=== PATIENT | female | born 1940 | race Asian ===

== ENCOUNTER 2016-11-23 12:09 | Emergency (ER) | payer OTHER ==
[2016-11-23 12:28] VITALS: TEMP 97.5
--- NOTE | 2016-11-23 13:14 | CPEKG ---
Heart Rate: 70 RR Interval: 857 P-R Interval: 192 QRSD Interval: 86 QT Interval: 464 QTC Interval: 501 P [place]: 47 QRS [place]: 4 T Wave [place]: -18 EKG Severity - ABNORMAL ECG - EKG Impression: SINUS RHYTHM EKG Impression: NONSPECIFIC T ABNORMALITIES, INFERIOR LEADS EKG Impression: BORDERLINE PROLONGED QT INTERVAL Electronically Signed By: Swetha Richards 23-Nov-2016 21:12:02
--- NOTE | 2016-11-23 13:29 | DX ---
PA and Lateral Chest Indication: Dyspnea Comparison: None Findings: Lungs have diffuse mild peribronchial thickening and minimal linear bibasilar atelectasis. No pneumothorax, airspace consolidation, edema or effusion. The heart size is upper normal. Coronary stents overlie the right and left side of the heart. Calcified plaque is present along the aortic arc h. Surgical clips reside in the right upper quadrant. Impression: 1. Mild bronchitis and minimal bibasilar atelectasis. No pneumonia or effusion. 2. Stigmata of coronary artery disease.
[2016-11-23 13:30] LABS: % IMMATURE GRANULYOCYTES 0.2 % (0.0-1.1); ABSOLUTE IMMATURE GRANULOCYTES 0.02 10^3/uL (0.00-0.10); ADD DIFF? NO; ADD MORPH? NO; ADD SCAN? NO; ATYPICAL LYMPHOCYTE FLAG 0 (0-99); FRAGMENT RBC FLAG 0 (0-99); HEMATOCRIT 32.8 % (38.0-47.0); HEMOGLOBIN 11.4 g/dL (12.6-16.3); LEFT SHIFT FLG 0 (0-99); LIPEMIA HEMOLYSIS FLAG 90 (0-99); MEAN CELL HEMOGLOBIN 31.5 pg (27.9-34.1); MEAN CELL HEMOGLOBIN CONCENTR. 34.8 g/dL (32.4-36.7); MEAN CELL VOLUME 90.6 fL (81.5-99.8); MEAN PLATELET VOLUME 9.5 fL (8.7-11.7); PLATELET CLUMPS FLAG 10 (0-99); PLATELET COUNT 197 10^3/uL (150-400); RED BLOOD CELL COUNT 3.62 10^6/uL (4.18-5.33); RED CELL DISTRIBUTION WIDTH 12.4 % (11.5-15.2)
[2016-11-23 13:39] LABS: INR 1.21 (0.83-1.16); PROTIME(PATIENT) 15.3 SEC (12.0-15.0)
[2016-11-23 13:40] LABS: APTT 30.6 SEC (23.0-38.0)
[2016-11-23 13:49] LABS: ANION GAP 10 mEq/L (8-16); CALCIUM 8.8 mg/dL (8.5-10.4); CARBON DIOXIDE 23 mEq/l (22-31); CHLORIDE 104 mEq/L (97-110); CREATININE 0.7 mg/dL (0.6-1.0); GLOMERULAR FILTRATION RATE > 60; GLUCOSE 132 mg/dL (70-100); POTASSIUM 4.5 mEq/L (3.5-5.2); SODIUM 137 mEq/L (134-144)
[2016-11-23 13:59] LABS: TROPONIN I < 0.012 ng/mL (0-0.034)
[2016-11-23 15:32] VITALS: O2SAT 99
[2016-11-23 15:32] LABS: COLOR PALE YELLOW; LEUKOCYTE ESTERASE,URINE NEGATIVE (NEGATIVE); NITRITE,URINE NEGATIVE (NEGATIVE)
[2016-11-23] MEDS ORDERED: NS 1,000 ML IV ONE (15:55)
[2016-11-23 15:56] VITALS: PULSE 71
--- NOTE | 2016-11-23 16:02 | EDPHY ---
H & P Stated Complaint: Weakness, KELSEY, Vision Disturbance Time Seen by Provider: 11/23/16 12:33 HPI/ROS: Chief complaint: Weakness History of present illness: This is a 76-year-old female who presents to the emergency department for evaluation of weakness. Patient reports she has been suffering for weakness for quite some time. Her initial episode was last fall, but was only fleeting in nature. However, over the last few weeks the weakness has significantly worsened. She has had associated numbness in her arms. Today it worsened and she started to lose her vision. Her family took her blood pressure and noted it was systolic in the 90's. She has a history of cardiac disease and has been stented. She states prior to being stented about 3 years ago she had similar symptoms. She has followed up with a senior compliance officer and in fact had a chemical stress test at the beginning of this week which was within normal limits. Patient denies other associated signs or symptoms including no fevers or chills or cold-like symptoms, no actual chest pain, cough or trouble breathing, no pain or swelling in the legs. Review of systems: A 10 point review of systems was obtained and other than described above was negative - Personal History Current Tetanus/Diphtheria Vaccine: Unsure Current Tetanus Diphtheria and Acellular Pertussis (TDAP): Unsure - Medical/Surgical History Hx Asthma: No Hx Chronic Respiratory Disease: No Hx Diabetes: No Hx Cardiac Disease: No Hx Renal Disease: No Hx Cirrhosis: No Hx Alcoholism: No Hx HIV/AIDS: No Hx Splenectomy or Spleen Trauma: No Other PMH: CHOLY/DIABETES - Social History Smoking Status: Never smoked - Physical Exam Exam: General Appearance: Alert, nontoxic. Eyes: Pupils equal and round no pallor or injection. ENT, Mouth: Mucous membranes moist. Respiratory: There are no retractions, lungs are clear to auscultation. Cardiovascular: Regular rate and rhythm. Gastrointestinal: Abdomen is soft and nontender, no masses, bowel sounds normal. Neurological: Alert and oriented. Cranial nerves 2-12 grossly intact. Strength and sensation intact and symmetrical. Skin: Warm and dry, no rashes. Musculoskeletal: Neck is supple nontender. Extremities are symmetrical, full range of motion. Psychiatric: Patient is oriented X 3, there is no agitation. Constitutional: Initial Vital Signs Temperature (C) 36.4 C 11/23/16 12:24 Heart Rate 64 02/10/17 12:24 Respiratory Rate 16 11/23/16 12:24 Blood Pressure 117/60 11/23/16 12:24 O2 Sat (%) 97 11/23/16 12:24 O2 Delivery Mode Room Air Allergies/Adverse Reactions: No Known Allergies Allergy (Unverified 09/28/15 12:19) Home Medications: Medication Instructions Recorded Aspirin [Aspirin 81mg (OTC)] 81 mg PO DAILY 11/20/12 Ezetimibe [Zetia 10 MG (RX)] 10 mg PO DAILY 11/20/12 Losartan Potassium [Cozaar 50 mg 50 mg PO BID 11/20/12 (RX)] Metformin HCl [Glucophage 1000 mg] 1,000 mg PO DAILY 11/20/12 amLODIPine BESYLATE [Norvasc 5 mg 5 mg PO BID 11/20/12 (RX)] Hydrocodone/APAP 5/325 [[place] 1 tab PO Q6 PRN #10 tab 09/28/15 5/325 (RX)] Medical Decision Making ED Course/Re-evaluation: Patient was discussed with my secondary supervising physician Dr. Swetha Richards. Patient presents to the emergency department for evaluation of weakness, discomfort in her arms that has been progressively worsening. She has a history of cardiac disease and concerned this is related. On presentation she is nontoxic. She is afebrile and vital signs are stable. Physical exam is benign. Baseline blood studies largely unremarkable. EKG obtained, please see attending's read, chest x-ray unremarkable. I did consult with her senior compliance officer, Dr. Coleman. He had his nurse practitioner see the patient in the emergency department. They decided patient could be safely discharged home. They have arranged multiple follow-up visits next week and the following week for further evaluation and care. I have discussed with the patient and her family this plan and they are comfortable being discharged home and following up in clinic. Home care is discussed. Strict return precautions are given. Again patient and family voiced understanding and agreement with plan. Differential Diagnosis: Included but not limited to ACS, cardiac dysrhythmia, electrolyte disturbances, infections such as urinary tract infection - Data Points Laboratory Results: Laboratory Results 11/23/16 13:18 11/23/16 13:18 11/23/16 11/23/16 14:50 13:18 WBC 8.51 10^3/uL (3.80-9.50) RBC 3.62 L 10^6/uL (4.18-5.33) Hgb 11.4 L g/dL (12.6-16.3) Hct 32.8 L % (38.0-47.0) MCV 90.6 fL (81.5-99.8) MCH 31.5 pg (27.9-34.1) MCHC 34.8 g/dL (32.4-36.7) RDW 12.4 % (11.5-15.2) Plt Count 197 10^3/uL (150-400) MPV 9.5 fL (8.7-11.7) Neut % (Auto) 56.7 % (39.3-74.2) Lymph % (Auto) 24.6 % (15.0-45.0) [place] % (Auto) 7.8 % (4.5-13.0) Eos % (Auto) 9.9 H % (0.6-7.6) Baso % (Auto) 0.8 % (0.3-1.7) Nucleat RBC Rel Count 0.0 % (0.0-0.2) Absolute Neuts (auto) 4.83 10^3/uL (1.70-6.50) Absolute Lymphs (auto) 2.09 10^3/uL (1.00-3.00) Absolute Monos (auto) 0.66 10^3/uL (0.30-0.80) Absolute Eos (auto) 0.84 H 10^3/uL (0.03-0.40) Absolute Basos (auto) 0.07 10^3/uL (0.02-0.10) Absolute Nucleated RBC 0.00 10^3/uL (0-0.01) Immature Gran % 0.2 % (0.0-1.1) Immature Gran # 0.02 10^3/uL (0.00-0.10) PT 15.3 H SEC (12.0-15.0) INR 1.21 H (0.83-1.16) APTT 30.6 SEC (23.0-38.0) Sodium 137 mEq/L (134-144) Potassium 4.5 mEq/L (3.5-5.2) Chloride 104 mEq/L (97-110) Carbon Dioxide 23 mEq/l (22-31) Anion Gap 10 mEq/L (8-16) BUN 17 mg/dL (7-23) Creatinine 0.7 mg/dL (0.6-1.0) Estimated GFR > 60 Glucose 132 H mg/dL (70-100) Calcium 8.8 mg/dL (8.5-10.4) Troponin I < 0.012 ng/mL (0-0.034) Urine Color PALE YELLOW Urine Appearance CLEAR Urine pH 6.0 (5.0-7.5) Ur Specific [place] 1.006 (1.002-1.030) Urine Protein NEGATIVE (NEGATIVE) Urine Ketones NEGATIVE (NEGATIVE) Urine Blood NEGATIVE (NEGATIVE) Urine Nitrate NEGATIVE (NEGATIVE) Urine Bilirubin NEGATIVE (NEGATIVE) Urine Urobilinogen NEGATIVE EU (0.2-1.0) Ur Leukocyte Esterase NEGATIVE (NEGATIVE) Ur Culture Indicated? NOT INDICATED (NI) Urine Glucose NEGATIVE (NEGATIVE) Medications Given: Discontinued Medications Sodium Chloride (Ns) 1,000 mls @ 0 mls/hr IV ONCE ONE PRN Reason: Wide Open Stop: 11/23/16 15:56 Last Admin: 11/23/16 15:56 Dose: 1,000 mls Departure - Departure Disposition: Home, Routine, Self-Care Clinical Impression: Weakness Condition: Good Instructions: Weakness (ED) Additional Instructions: Follow-up with her primary care doctor next week for recheck Follow-up with your senior compliance officer, including the appointments were given today next week for continued evaluation and care Insure you drink plenty of fluids to stay hydrated and get plenty of rest If symptoms worsen or new symptoms develop return to the emergency department for recheck Referrals: Guerita Bazan MD [Primary Care Provider] - As per Instructions
[2016-11-23 16:22] VITALS: BP 123/75; RESP 15
--- NOTE | 2016-11-23 17:30 | GCON ---
[f rep st] CONSULTATION ER CONSULT DATE OF CONSULTATION: 11/23/2016 We are asked to comment on the patient's ER visit for near syncopal episode. HISTORY OF PRESENT ILLNESS: This patient is a 76-year-old female who is well known to Dr. Scotty Coleman at [facility]. She has known coronary artery disease dating back to November 2012, when she had a stent placed to her LAD. She has had infrequent episodes of chest discomfort intermittently over the last 2 months. She was seen by Dr. Coleman in July 2016 and he recommended a nuclear stress test to evaluate her cardiac status. She did have the test done on November 21, 2016, and it was a normal test showing no cardiac ischemia. Today, she arrives at the emergency room with complaint of near syncopal episode this morning. She reports that she has had several episodes over the last few months that were similar. This morning, she was getting into the shower and suddenly felt her vision change and felt slightly weakened. She was able to finish her shower and then felt cold and laid down. She described the feeling as if she was shutting down. Her daughters then brought her to the emergency room for further evaluation. She reports that she does not drink significant amounts of water during the day. Her daughters confirms this saying that she likely drinks an equivalent to 3 glasses of water a day. She does have diabetes and noted that this morning her glucose was unusually elevated at 250. She is very compliant taking her metformin and was surprised at this reading. At the time of this visit, she is feeling much better. She has no lightheadedness or dizziness. She remains wrapped up in the blankets as she was feeling cold. Her environmental monitoring technician shows a regular sinus rhythm with a rate of 78. Her blood pressure in the emergency room at 4 o'clock was 123/75. At noon on her admission, it was 117/ 60. Her blood pressures have been in normal range throughout the emergency room visit. She denies palpitations or shortness of breath. PAST MEDICAL HISTORY: She has a history of coronary artery disease with a stent placed in 2012 to the LAD, diabetes mellitus type 2, hyperlipidemia, hypertension, obstructive sleep apnea. PAST SURGERIES: Cholecystectomy. MEDICATIONS: She is on amlodipine 5 mg daily, Hyzaar 50-12.5 mg daily, lorazepam 0.5 mg as needed for sleep, metformin 500 mg 2 tablets in the morning and 1 tablet in the evening, Zantac 150 mg 1 tablet daily, Zetia 10 mg 1 tablet daily, aspirin 81 mg enteric coated 1 tablet daily. ALLERGIES: She has allergies to atorvastatin and Januvia. REVIEW OF SYSTEM: A 10-point review of system was done. All negative other than the above mentioned. PHYSICAL EXAMINATION: CARDIAC: Heart rate is regular. No murmurs, rubs or gallops. RESPIRATORY: Lungs are clear to auscultation. No wheezes, rales or rhonchi. EXTREMITIES: She has no peripheral edema in the upper extremities or lower extremities. NEUROLOGIC: She is alert and oriented to person, place and time. PSYCHIATRIC: Her mood is normal. Affect is appropriate. DISCUSSION: She acknowledges that she does not hydrate well. She agrees to increase her hydration and understands that this may help her lightheaded and dizziness. Her daughters had also stated that [place] which is higher in altitude then they have been for a while which might be contributing and which needs additional hydration. She has not noted palpitations, however, is in agreement that further evaluation for possible arrhythmias is appropriate. Her blood pressure was checked for orthostatic changes. Lying 120/81 with a heart rate of 71, sitting 147/74 with a heart rate 75, and standing 127/68 with a heart rate of 78. She had no dizziness or lightheadedness. Not likely significant changes. PLAN: 1. She will have a UA checked to ensure that she does not have a silent urinary tract infection. 2. She agrees to increase her hydration to a minimal of 60 ounces a day. 3. She will have a 48-hour Holter monitor done to evaluate for possible cardiac arrhythmias causing her near syncopal episode. 4. She will follow up with Dr. Scotty Coleman with [facility] in 2 weeks. She does have an appointment scheduled for followup on December 11 at the [place] office. The Holter monitor appointment has been made and will be placed at [facility] on November 27, 2016. Appointment cards were given for both of these appointments. At this time, she currently is stable. This plan was discussed with ER provider, CRISTAL Stanley. /[id number]/MODL MTDD
== END 2016-11-23 16:31 | disposition home or self-care (01) ==
LOC: EDUNIT#
DX: R53.1 Weakness (principal); E11.9 Type 2 diabetes mellitus without complications; Z79.82 Long term (current) use of aspirin

== ENCOUNTER → 2017-08-29 | Outpatient (CLI) | payer OTHER | LOC: FIMAGING 15:41 | PROVIDERS: ATTEND Physician Assistant | DX: I70.0 Atherosclerosis of aorta (principal) ==